=== PATIENT | male | born 1995 | race Hispanic/Latino ===

== ENCOUNTER 2022-04-26 15:40 | Emergency (ER) | payer OTHER ==
[2022-04-26 16:54] LABS: #Basophils 0.1 10x3/uL (0.0-0.2); #Eosinphils 0.1 10x3/uL (0.0-0.5); #Monocytes 0.6 10x3/uL (0.0-1.1); #Neutrophils 5.9 10x3/uL (1.5-8.4); %Basophils 0.6 % (0.0-2.0); %Eosinophils 1.3 % (0.0-6.0); %Lymphocytes 19.6 % (18.0-47.0); %Monocytes 7.3 % (0.0-10.0); %Neutrophils 70.7 % (40.0-75.0); Hemoglobin 13.9 g/dL (13.5-17.5); Mean Corpuscular HGB CONC 34.3 g/dL (32.0-36.0); Mean Corpuscular Hemoglobin 28.7 pg (27.0-33.0); Mean Corpuscular Volume 83.5 fl (81.2-95.1); Mean Platelet Volume 10.6 fl (7.4-10.4); Platelet Count 193 10x3/uL (150-450); RBC Distribution Width 12.8 % (11.5-14.5); Red Blood Cell (RBC) Count 4.85 10x6/uL (4.32-5.72); White Blood Cell (WBC) Count 8.3 10x3/uL (3.5-10.5)
[2022-04-26 17:04] LABS: ALT (SGPT) 16 U/L (8-55); AST (SGOT) 17 U/L (5-34); Albumin 4.1 g/dL (3.5-5.0); Alkaline Phosphatase 78 U/L (40-110); Anion Gap 11 mmol/L (10-20); BUN (Urea Nitrogen) 11 mg/dL (8.9-20.6); Bilirubin, Total 0.3 mg/dL (0.2-1.2); Calc. Creatinine Clearance 0 mL/min (70-130); Calcium 8.9 mg/dL (7.8-10.44); Carbon Dioxide 26 mmol/L (22-29); Chloride 106 mmol/L (98-107); Estimated GFR 123; Globulin 2.8 g/dL (2.4-3.5); Glucose 101 mg/dL (70-105); Potassium 4.7 mmol/L (3.5-5.1); Protein, Total 6.9 g/dL (6.0-8.3); Sodium 138 mmol/L (136-145)
[2022-04-26] MEDS ORDERED: Cefepime 2 GM VIAL ONE (19:08)
[2022-04-26 20:39] LABS: SARS-CoV-2 NAA Rapid Test Not Detected (NotDetected)
[2022-04-26] MEDS ORDERED: Ketorolac Tromethamine 30 MG/ML VIAL ONE (22:32)
== END 2022-04-26 22:56 | disposition short-term general hospital (02) ==
LOC: CSHERS 15:40 → EEVIPCON 15:40 → CSHERS 22:56
DX: L03.011 Cellulitis of right finger (principal); M65.841 Other synovitis and tenosynovitis, right hand; Z20.822 Contact with and (suspected) exposure to COVID-19
CPT/HCPCS: 36415; 80053; 83605; 85025; 85652; 86140; 96365; 96366; 96367; 96375; J0692; J1885; J3370; U0002